=== PATIENT | female | born 1990 ===

== ENCOUNTER 2018-01-05 11:24 | Inpatient (IN) | payer OTHER ==
[2018-01-05] MEDS ORDERED: CEFAZOLIN 2 GM/50 ML (PMX) 50 ML IV (12:00)
[2018-01-05] MEDS ORDERED: METHYLERGONOVINE 0.2 MG INJ IM (12:00)
[2018-01-05] MEDS ORDERED: OXYTOCIN 30 UNITS/LR 500 ML IV (12:00)
[2018-01-05] MEDS ORDERED: MISOPROSTOL 200 MCG TAB PR ×2 (12:00→13:30)
[2018-01-05] MEDS ORDERED: CARBOPROST 250 MCG INJ IM (12:00)
[2018-01-05] MEDS: LACTATED RINGER'S 1,000 ML IV ×4 (12:15→21:20)
[2018-01-05 12:31] LABS: ADD MAN DIFF? NO
[2018-01-05] MEDS ORDERED: CITRIC ACID/SODIUM CITRATE 15 ML CUP (12:34)
[2018-01-05 12:36] LABS: BASOPHILS % 0.3 % (0.0-2.0); EOSINOPHILS # 0.1 10^3/ul (0.0-0.5); EOSINOPHILS % 1.5 % (0.0-7.0); HEMATOCRIT 35.8 % (37.0-47.0); HEMOGLOBIN 11.8 g/dl (12.0-16.0); LYMPHOCYTES # 1.5 10^3/ul (0.8-2.9); LYMPHOCYTES % 19.8 % (15.0-51.0); MEAN CORPUSCULAR HEMOGLOBIN 29.7 pg (29.0-33.0); MEAN CORPUSCULAR VOLUME 90.2 fl (82.0-101.0); MONOCYTE # 0.5 10^3/ul (0.3-0.9); MONOCYTES % 6.6 % (0.0-11.0); NEUTROPHIL # 5.2 10^3/ul (1.6-7.5); NEUTROPHILS % 70.2 % (39.0-77.0); PLATELET COUNT 179 10^3/UL (140-415); RED BLOOD COUNT 3.97 10^6/ul (4.20-5.40); RED CELL DISTRIBUTION WIDTH 14.9 % (11.5-14.5)
[2018-01-05 12:36] LABS: WHITE BLOOD COUNT 7.4 10^3/ul (4.8-10.8)
[2018-01-05] MEDS: CITRIC ACID/SODIUM CITRATE 15 ML CUP PO (12:38)
[2018-01-05 13:02] LABS: INR 0.93; PARTIAL THROMBOPLASTIN TIME 28.1 Sec (25.0-35.0); PROTIME 12.6 Sec (11.9-14.9)
[2018-01-05] MEDS ORDERED: BUPIVACAINE 0.75%/DEXT (SPINAL) 2 ML INJ (13:23)
[2018-01-05] MEDS ORDERED: morphine SULFATE/PF (10 MG/10 ML) INJ (13:23)
[2018-01-05] MEDS ORDERED: FENTAnyl 50 MCG/ML VIAL (13:23)
[2018-01-05 13:28] LABS: HEPATITIS B SURFACE ANTIGEN NEGATIVE (NEGATIVE)
[2018-01-05] MEDS ORDERED: OXYCODONE/ACETAMINOPHEN (5/325) TAB PO (13:30)
[2018-01-05] MEDS ORDERED: LANOLIN 7 GM TUBE TOP (13:30)
[2018-01-05] MEDS ORDERED: NA PHOSPHATE/BIPHOS 133 ML ENEMA PR (13:30)
[2018-01-05] MEDS ORDERED: ONDANSETRON 4 MG INJ (13:38)
[2018-01-05] MEDS ORDERED: DEXAMETHASONE 4 MG/ML 1 ML INJ (13:38)
[2018-01-05] MEDS ORDERED: ZOLPIDEM 5 MG TAB PO (14:30)
[2018-01-05] MEDS ORDERED: NALOXONE (0.4 MG/ML) INJ IV (14:30)
[2018-01-05] MEDS ORDERED: DIPHENHYDRAMINE 50 MG INJ IV (14:30)
[2018-01-05] MEDS ORDERED: HYDROmorphONE 0.5 MG/0.5 ML SYG IV ×2 (14:30)
[2018-01-05] MEDS ORDERED: KETOROLAC 30 MG INJ IV (14:30)
[2018-01-05] MEDS ORDERED: ONDANSETRON 4 MG INJ IV (14:30)
[2018-01-05] MEDS: OXYTOCIN 30 UNITS/LR 500 ML IV (15:29)
[2018-01-05 17:47] LABS: AMPHETAMINE/METHAMPHETAMINE Negative (NEGATIVE); BARBITURATES Negative (NEGATIVE); BENZODIAZEPINES Negative (NEGATIVE); CANNABINOIDS Negative (NEGATIVE); COCAINE Negative (NEGATIVE); OPIATES Negative (NEGATIVE)
[2018-01-05] MEDS: IBUPROFEN 600 MG TAB PO (18:00)
[2018-01-05 19:34] LABS: RAPID PLASMA REAGIN NONREACTIVE (NR)
[2018-01-05] MEDS: SENNA/DOCUSATE NA (8.6MG/50MG) TAB PO (21:20)
[2018-01-06] MEDS: LACTATED RINGER'S 1,000 ML IV ×3 (05:25→21:13)
[2018-01-06] MEDS: IBUPROFEN 600 MG TAB PO ×5 (06:00→23:56)
[2018-01-06 06:37] LABS: ADD MAN DIFF? NO
[2018-01-06 06:45] LABS: BASOPHILS % 0.3 % (0.0-2.0); EOSINOPHILS # 0.1 10^3/ul (0.0-0.5); HEMATOCRIT 31.3 % (37.0-47.0); HEMOGLOBIN 10.6 g/dl (12.0-16.0); LYMPHOCYTES # 2.1 10^3/ul (0.8-2.9); LYMPHOCYTES % 20.2 % (15.0-51.0); MEAN CORPUSCULAR HEMOGLOBIN 30.2 pg (29.0-33.0); MEAN CORPUSCULAR HGB CONC 33.9 g/dl (32.0-37.0); MEAN CORPUSCULAR VOLUME 89.2 fl (82.0-101.0); MEAN PLATELET VOLUME 10.5 fl (7.4-10.4); MONOCYTE # 0.6 10^3/ul (0.3-0.9); MONOCYTES % 5.4 % (0.0-11.0); NEUTROPHIL # 7.5 10^3/ul (1.6-7.5); NEUTROPHILS % 72.3 % (39.0-77.0); PLATELET COUNT 191 10^3/UL (140-415); RED BLOOD COUNT 3.51 10^6/ul (4.20-5.40); RED CELL DISTRIBUTION WIDTH 14.4 % (11.5-14.5)
[2018-01-06 06:45] LABS: WHITE BLOOD COUNT 10.4 10^3/ul (4.8-10.8)
[2018-01-06] MEDS: SENNA/DOCUSATE NA (8.6MG/50MG) TAB PO ×2 (09:08→21:33)
[2018-01-07] MEDS: LACTATED RINGER'S 1,000 ML IV ×2 (05:13→13:13)
[2018-01-07] MEDS: IBUPROFEN 600 MG TAB PO ×4 (05:53→23:41)
[2018-01-07] MEDS: SENNA/DOCUSATE NA (8.6MG/50MG) TAB PO ×2 (09:13→21:00)
[2018-01-07] MEDS: OXYCODONE/ACETAMINOPHEN (5/325) TAB PO (10:36)
[2018-01-08] MEDS: IBUPROFEN 600 MG TAB PO ×2 (05:28→11:42)
[2018-01-08] MEDS: MEASLES,MUMPS,RUBELLA VACCINE INJ SC* (09:23)
[2018-01-08] MEDS: DIPHTH/TET/ACEL PERTUSS (ADULT) 0.5 ML VIAL IM* (09:23)
[2018-01-08] MEDS: SENNA/DOCUSATE NA (8.6MG/50MG) TAB PO (09:23)
== END 2018-01-08 16:10 | disposition home or self-care (01) | DRG 766 ==
LOC: L-D 11:24 → PP1 16:42
PROVIDERS: Specialist
PROC: 10D00Z1 Extraction of Products of Conception, Low, Open Approach (ICD-10-PCS; principal; 2018-01-05 14:00)
DX: O34.219 Maternal care for unspecified type scar from previous cesarean delivery (principal); Z3A.39 39 weeks gestation of pregnancy; Z37.0 Single live birth
CPT/HCPCS: 80307; 85025; 85610; 85730; 86592; 86850; 86900; 86901; 87340; 99464